=== PATIENT | female | born 1960 | race Caucasian/White ===

== ENCOUNTER → 2016-12-20 | Outpatient (CLI) | payer OTHER | LOC: BMCIMAGING 12:28 | PROVIDERS: ATTEND Family Medicine | DX: Z12.31 Encounter for screening mammogram for malignant neoplasm of breast (principal); Z80.3 Family history of malignant neoplasm of breast | CPT/HCPCS: G0202 ==

== ENCOUNTER → 2017-09-25 | Outpatient (CLI) | payer OTHER, MEDICARE | LOC: BHFA 14:00 | PROVIDERS: ATTEND Internal Medicine Interventional Cardiology | DX: R07.9 Chest pain, unspecified (principal); I20.0 Unstable angina; I10 Essential (primary) hypertension; E78.5 Hyperlipidemia, unspecified; Z95.5 Presence of coronary angioplasty implant and graft ==

== ENCOUNTER 2017-09-26 08:34 | Day surgery (SDC) | payer OTHER, MEDICARE ==
[2017-09-26] MEDS ORDERED: DIAZEPAM 5 MG TAB PO ONE (08:38)
[2017-09-26] MEDS ORDERED: diphenhydrAMINE 25 MG CAP PO ONE ×2 (08:38→09:09)
[2017-09-26] MEDS ORDERED: NS 1,000 ML IV ONE (08:38)
[2017-09-26] MEDS ORDERED: FAMOTIDINE 20 MG TAB PO ONE (08:38)
[2017-09-26] MEDS ORDERED: ASPIRIN EC 325 MG TAB PO ONE ×2 (08:38→09:10)
--- NOTE | 2017-09-26 09:01 | CPEKG ---
Heart Rate: 78 RR Interval: 769 P-R Interval: 128 QRSD Interval: 90 QT Interval: 400 QTC Interval: 456 P [place]: 21 QRS [place]: 27 T Wave [place]: -1 EKG Severity - NORMAL ECG - EKG Impression: SINUS RHYTHM Electronically Signed By: Jorge Mcclellan 28-Sep-2017 16:22:05
[2017-09-26] MEDS ORDERED: DIAZEPAM 5 MG TAB ONE (09:10)
[2017-09-26] MEDS ORDERED: FAMOTIDINE 20 MG TAB ONE (09:10)
[2017-09-26 09:21] LABS: PLATELET COUNT 226 10^3/uL (150-400)
[2017-09-26 09:35] LABS: INR 0.91 (0.83-1.16); PROTIME(PATIENT) 12.5 SEC (12.0-15.0)
[2017-09-26] MEDS ORDERED: LIDOCAINE 1% 300 MG/30 ML SDV ONE (09:44)
[2017-09-26] MEDS ORDERED: fentaNYL 100 MCG/2 ML INJ ONE ×2 (09:44→10:38)
[2017-09-26] MEDS ORDERED: MIDAZOLAM 2 MG/2 ML VIAL ONE (09:45)
[2017-09-26] MEDS ORDERED: VERAPAMIL 5 MG/2 ML VIAL ONE (09:45)
[2017-09-26] MEDS ORDERED: HEPARIN 10,000 UNIT/10 ML MDV (1,000 UNIT/ML) ONE (09:45)
[2017-09-26] MEDS ORDERED: IOPAMIDOL (ISOVUE-370) 150 ML BTL IV ONE (09:45)
--- NOTE | 2017-09-26 09:54 | PDHPUP ---
History & Physical Update H&P update statement: This history and physical update is based on an assessment of the patient which was completed after admission or registration (within 24 hours), but prior to the surgery/procedure. H&P update: H&P reviewed & patient examined, no change in patient's condition since H&P completed
--- NOTE | 2017-09-26 09:54 | PDPROPOC ---
Sedation Plan of Care Sedation Plan of Care: vital signs stable, mental status noted, patient educated of risks, benefits, alternatives, patient can tolerate sedation ASA Classification: ASA 2 Planned drugs: fentanyl, midazolam Mallampati Score: Class 1 Mallampati Reference Image: Patient passed 3-3-2 rule?: Yes
[2017-09-26] MEDS ORDERED: NITROGLYCERIN 1,500 MCG/15 ML VIAL MISC ONE (10:38)
--- NOTE | 2017-09-26 11:05 | PDDXCAT ---
Diagnostic Cath Note - . Date: 09/26/[address] Cutter: [place] Indication: CCC Class III and IV angina on medical treatment - Procedure Access: left wrist Procedure: left heart catheterization, coronary angiography - Materials Left Heart Cath size: 4F Left Heart Cath materials: JL3.5, JR4.0, pigtail - Findings-Left Heart Catheterization LM: Unobstructed LAD: Large vessel extends to the apex. Luminal irregularities without focal stenosis LCX: Large vessel. Principal OM. No focal stenosis. RCA: Dominant vessel: Subtotaled distal right coronary with InStent restenosis proximally. EDP: 13 mm of mercury LVEF: 65 Wall motion: Normal Complications: None Estimated blood loss: <50ml Closure method: TR Band Assessment: Unstable angina with critical stenosis of the distal right coronary , InStent restenosis. Plan: PCI Intervention: Patient was anticoagulated with heparin. Therapeutic ACT was confirmed. Using a 6 [place] JR4 guiding catheter the right coronary selectively intubated. The guiding catheter was noted to be deep seated in modest InStent restenosis proximally. There was dampening. Using a 0.014 luge wire the RCA stenosis was crossed and a wire placed in the distal vessel. Was pre-dilated with a 2.5 mm balloon. Repeat angiograms revealed CATINA grade 3 flow with ulceration. Select proceed with stenting a 3.0 x 24 mm synergy stent was placed across the lesion. Was deployed using a single inflation. It was post dilated with 3.5 mm balloon. A 3.5 x 12 mm synergy stent was placed in the proximal RCA at the site of deep seating. It was deployed using a single inflation to 18 atmospheres. Repeat angiogram showed CATINA grade 3 flow. Conclusions unstable angina status post successful PCI and stenting of the distal right coronary. PCI and stenting of the proximal RCA in the setting of InStent restenosis. Patient Problems: Problems Problem Status Onset Angina effort Acute Coronary artery disease Acute
--- NOTE | 2017-09-26 11:42 | CPEKG ---
Heart Rate: 70 RR Interval: 857 P-R Interval: 132 QRSD Interval: 96 QT Interval: 428 QTC Interval: 462 P [place]: 19 QRS [place]: 16 T Wave [place]: 24 EKG Severity - NORMAL ECG - EKG Impression: SINUS RHYTHM Electronically Signed By: Jorge Mcclellan 28-Sep-2017 16:21:48
[2017-09-26 15:27] VITALS: BP 141/92
== END 2017-09-26 15:36 | disposition home or self-care (01) ==
LOC: FCATH 08:34
PROVIDERS: ATTEND Internal Medicine Interventional Cardiology
PROC: 4A023N7 Measurement of Cardiac Sampling and Pressure, Left Heart, Percutaneous Approach (ICD-10-PCS; principal; 2017-09-26)
PROC: B2111ZZ Fluoroscopy of Multiple Coronary Arteries using Low Osmolar Contrast (ICD-10-PCS; principal; 2017-09-26)
PROC: 02703DZ Dilation of Coronary Artery, One Artery with Intraluminal Device, Percutaneous Approach (ICD-10-PCS; principal; 2017-09-26)
DX: T82.855A Stenosis of coronary artery stent, initial encounter (principal); I25.119 Atherosclerotic heart disease of native coronary artery with unspecified angina pectoris; I10 Essential (primary) hypertension; E78.5 Hyperlipidemia, unspecified; F17.290 Nicotine dependence, other tobacco product, uncomplicated; Z88.0 Allergy status to penicillin; Z95.5 Presence of coronary angioplasty implant and graft
CPT/HCPCS: 92928; 93005; 93458; C1725; C1769; C1887; C1874; C9600; J1644; J2250; J3010; Q9967